=== PATIENT | female | born 1965 | race Caucasian/White ===

== ENCOUNTER 2017-04-30 17:31 | Emergency (ER) | payer OTHER ==
[~2017-04-30] VITALS: Ht 160 cm; Wt 70.0 kg
[2017-04-30 17:35] VITALS: BP 137/64; PULSE 114; RESP 16; TEMP 98.4; O2SAT 98
[2017-04-30] MEDS ORDERED: AMOXICILLIN/CLAVULANATE K 875 MG TAB PO ONE (17:45)
[2017-04-30] MEDS ORDERED: AUGM875T3 PO (17:51)
--- NOTE | 2017-04-30 17:52 | PD ---
HPI Chief Complaint: Bite or Sting Time Seen by Provider: 17:45 Travel History International Travel<30 days: No Contact w/Intl Traveler<30days: No Traveled to known affect area: No History of Present Illness HPI Patient is a 51-year-old female presenting to the emergency department for evaluation of a dog bite to her right forearm. Patient was bit by a neighbor's dog. She is uncertain of vaccination history. Patient's last tetanus vaccine was 2 years ago, she denies any significant pain, there is no active bleeding noted. Patient denies a significant past medical history. [facility] Past Medical History Medical History: Denies Significant Hx Tetanus Vaccination: < 5 Years Social History Alcohol Use: No Tobacco Use: Yes Substance Use: No Allergies-Medications (Allergen,Severity, Reaction): Coded Allergies: No Known Allergies (Unverified , 04/30/17) Reported Meds & Prescriptions Reported Meds & Active Scripts Active Augmentin (Amoxicillin-Clavulanate) 875-125 Mg Tab 1 Tab PO BID Review of Systems Except as stated in HPI: all other systems reviewed are Neg Skin: Positive Other Physical Exam Narrative GENERAL: Well developed, well nourished female. SKIN: Warm and dry. 0.5 cm superficial skin avulsions (3) to right wrist HEAD: Normocephalic. EYES: No scleral icterus. No injection or drainage. NECK: Supple, trachea midline. No JVD or lymphadenopathy. CARDIOVASCULAR: Regular rate and rhythm without murmurs, gallops, or rubs. RESPIRATORY: Breath sounds equal bilaterally. No accessory muscle use. GASTROINTESTINAL: Abdomen soft, non-tender, nondistended. MUSCULOSKELETAL: No cyanosis, or edema. 2+ radial pulse, brisk <3 second capillary refill. Full ROM on right hand and fingers BACK: Nontender without obvious deformity. No CVA tenderness. Data Data Last Documented VS Vital Signs Date Time Temp Pulse Resp B/P (MAP) Pulse Ox O2 Delivery O2 Flow Rate FiO2 04/30/17 17:45 16 04/30/17 17:35 98.4 114 137/64 (88) 98 Orders Orders Amoxicil-Clavulanate (Augmentin) (04/30/17 17:45) MDM Medical Decision Making Medical Screen Exam Complete: Yes Emergency Medical Condition: Yes Interpretation(s) Vital Signs Date Time Temp Pulse Resp B/P (MAP) Pulse Ox O2 Delivery O2 Flow Rate FiO2 9/11/17 17:45 16 04/30/17 17:35 98.4 114 16 137/64 (73) 98 Differential Diagnosis Puncture wound versus laceration versus abrasion versus exposure rabies versus other Narrative Course Patient is a 51-year-old female presenting for evaluation of dog bite to her right wrist. Wounds are superficial, dog is available to be quarantined. Patient's tetanus vaccine is up-to-date. She was given first dose of Augmentin in the emergency department. Pt was tachycardic on arrival, she states she ran across the parking lot. HR reassessed at 94 prior to discharge. Pt was given written discharge instructions. She is encouraged to wash area with soap and water, apply topical antibiotic ointment, apply nonocclusive dressing. She was advised to complete full course of antibiotics as prescribed. She was encouraged to return to emergency department for any new or worsening symptoms. She verbalized understanding of instructions. Patient is stable for discharge. Diagnosis Primary Impression: Dog bite Qualified Codes: W54.0XXA - Bitten by dog, initial encounter Referrals: Primary Care Physician 1 week Patient Instructions: Animal Bite (ED), General Instructions Additional Instructions: Follow-up with your primary doctor Complete full course of antibiotics as prescribed Keep area clean and dry, wash with soap and water, cover with Band-Aid Return to emergency department for any new or worsening symptoms Med/Other Pt SpecificInfo: Prescription(s) given Scripts Amoxicillin-Clavulanate (Augmentin) 875-125 Mg Tab 1 TAB PO BID for Infection, #20 TAB 0 Refills Prov: Heidi Jara 04/30/17 Disposition: 01 DISCHARGE HOME Condition: Stable Heidi Jara Apr 30, 2017 17:52
== END 2017-04-30 18:15 | disposition home or self-care (01) ==
LOC: NETRI 17:31 → EDTENT 18:15
DX: S51.851A Open bite of right forearm, initial encounter (principal); R00.0 Tachycardia, unspecified; W54.0XXA Bitten by dog, initial encounter; Z72.0 Tobacco use; Z23 Encounter for immunization
CPT/HCPCS: 99283